=== PATIENT | female | born 1990 | race Hispanic/Latino ===

== ENCOUNTER 2022-12-07 08:39 | Emergency (ER) | payer MEDICAID, OTHER ==
[2022-12-07] MEDS ORDERED: Acetaminophen 500 MG TAB ONE (09:33)
[2022-12-07 10:24] LABS: SARS-CoV-2 NAA Rapid Test Not Detected (NotDetected)
== END 2022-12-07 11:10 | disposition home or self-care (01) ==
LOC: CSHERS 08:39
DX: O99.513 Diseases of the respiratory system complicating pregnancy, third trimester (principal); J10.1 Influenza due to other identified influenza virus with other respiratory manifestations; O99.333 Smoking (tobacco) complicating pregnancy, third trimester; F17.210 Nicotine dependence, cigarettes, uncomplicated; Z20.822 Contact with and (suspected) exposure to COVID-19; Z3A.00 Weeks of gestation of pregnancy not specified
CPT/HCPCS: 99284

== ENCOUNTER 2022-12-11 17:50 | Inpatient (IN) | payer MEDICAID, OTHER ==
[~2022-12-11 17:50] MED LIST: Bupivacaine 0.25% HCL 30 ML VIAL ONE
[2022-12-11] MEDS ORDERED: Promethazine HCl 25 MG/ML VIAL IM PRN (18:46)
[2022-12-11] MEDS ORDERED: Methylergonovine 0.2 MG/ML VIAL IM PRN (18:46)
[2022-12-11] MEDS ORDERED: Lidocaine 1% (PF) 30 ML VIAL SC PRN (18:46)
[2022-12-11] MEDS ORDERED: hydrALAZINE 20 MG/ML VIAL SLOW IVP PRN (18:46)
[2022-12-11] MEDS ORDERED: Carboprost 250 MCG/ML AMP IM PRN (18:46)
[2022-12-11] MEDS ORDERED: Misoprostol 200 MCG TAB PR PRN (18:46)
[2022-12-11] MEDS ORDERED: Ondansetron PF 4 MG/2 ML Vial IVP PRN (18:46)
[2022-12-11] MEDS ORDERED: Acetaminophen 500 MG TAB PO PRN (18:46)
[2022-12-11] MEDS ORDERED: Ibuprofen 800 MG TAB PO PRN (18:46)
[2022-12-11 19:24] LABS: Hemoglobin 12.9 g/dL (12.0-15.5); Mean Corpuscular HGB CONC 33.9 g/dL (32.0-36.0); Mean Corpuscular Hemoglobin 28.4 pg (27.0-33.0); Mean Corpuscular Volume 83.5 fl (81.6-98.3); Mean Platelet Volume 10.4 fl (7.4-10.4); Platelet Count 288 10x3/uL (150-450); Red Blood Cell (RBC) Count 4.55 10x6/uL (3.90-5.03); White Blood Cell (WBC) Count 7.9 10x3/uL (3.5-10.5)
[2022-12-11 19:52] LABS: HBSAg Index 0.46 S/CO (0-0.99); Hep B Surf Ag - L&D Non-Reactive S/CO (NonReactive); Syphilis Antibody Nonreactive (Nonreactive); Syphilis Antibody Index 0.03 S/CO (<1.00 Non-Reactive)
[2022-12-11 20:54] VITALS: BMI 31.0
[2022-12-11] MEDS ORDERED: Misoprostol 100 MCG TAB VAG SCH (21:00)
[2022-12-11] MEDS ORDERED: Lactated Ringer's 1,000 ML IV SCH (21:00)
[2022-12-11] MEDS ORDERED: NS w/ Oxytocin 30 units 500 ML IV SCH ×2 (21:00)
[2022-12-12] MEDS ORDERED: fentaNYL/Ropivacaine Epidural 100 ML ONE (00:53)
[2022-12-12] MEDS ORDERED: Naloxone HCl 0.4 mg/ml Vial IVP PRN ×2 (01:29)
[2022-12-12] MEDS ORDERED: Moisturizing Cream (Eucerin) 113 GM JAR TOP PRN (01:29)
[2022-12-12] MEDS ORDERED: diphenhydrAMINE 50 MG/ML VIAL IVP PRN (01:29)
[2022-12-12] MEDS ORDERED: Lactated Ringer's 500 ML IV PRN (01:29)
[2022-12-12] MEDS ORDERED: Acetaminophen 325 MG TAB PO PRN (01:29)
[2022-12-12] MEDS ORDERED: Ondansetron PF 4 MG/2 ML Vial IVP PRN (01:29)
[2022-12-12] MEDS ORDERED: Promethazine HCl 25 MG/ML VIAL IM PRN (01:29)
[2022-12-12] MEDS ORDERED: ePHEDrine Sulfate 50 MG/10 ML VIAL SLOW IVP PRN (01:29)
[2022-12-12] MEDS ORDERED: Communication Order-Pharmacy FS SCH (01:30)
[2022-12-12] MEDS ORDERED: fentaNYL 2 mcg/Ropivacaine 0.2% Epidural 100 ML CADD EPIDURAL SCH (01:30)
[2022-12-12] MEDS ORDERED: Lidocaine 1% (PF) 30 ML VIAL ONE (02:52)
[2022-12-12] MEDS ORDERED: Lanolin Ointment 7 GM TUBE TOP PRN (03:32)
[2022-12-12] MEDS ORDERED: hydrALAZINE 20 MG/ML VIAL SLOW IVP PRN (03:32)
[2022-12-12] MEDS ORDERED: Bisacodyl 10 MG SUPP PR PRN (03:32)
[2022-12-12] MEDS ORDERED: Milk Of Magnesia 30 ML UDCUP PO PRN (03:32)
[2022-12-12] MEDS ORDERED: Boostrix 0.5 ML (Tdap) VIAL (>/=7 yrs of age) IM ONE (03:32)
[2022-12-12] MEDS: Ferrous Sulfate 325 MG TAB PO SCH ×2 (07:19→15:49)
[2022-12-12] MEDS: Docusate 100 MG CAP PO SCH ×2 (08:25→20:34)
[2022-12-12] MEDS: Ibuprofen 600 MG TAB PO PRN (17:40)
[2022-12-13] MEDS: Ibuprofen 600 MG TAB PO PRN (03:59)
[2022-12-13] MEDS: Ferrous Sulfate 325 MG TAB PO SCH (07:17)
[2022-12-13 07:50] VITALS: BP 105/63; TEMP 98.3
[2022-12-13] MEDS: Docusate 100 MG CAP PO SCH (08:21)
== END 2022-12-13 17:35 | disposition home or self-care (01) | DRG 807 ==
LOC: CSHLD 17:50 → CSHPP 12-12 05:55
PROVIDERS: ADMIT Emergency Medicine; ATTEND Obstetrics & Gynecology
PROC: 10E0XZZ Delivery of Products of Conception, External Approach (ICD-10-PCS; principal; 2022-12-12)
PROC: 0HQ9XZZ Repair Perineum Skin, External Approach (ICD-10-PCS; 2022-12-12)
DX: O48.0 Post-term pregnancy (principal); Z37.0 Single live birth; Z3A.41 41 weeks gestation of pregnancy; O99.02 Anemia complicating childbirth; D64.9 Anemia, unspecified; O99.344 Other mental disorders complicating childbirth; F32.9 Major depressive disorder, single episode, unspecified; O76 Abnormality in fetal heart rate and rhythm complicating labor and delivery; O70.0 First degree perineal laceration during delivery; F41.1 Generalized anxiety disorder; O43.123 Velamentous insertion of umbilical cord, third trimester
CPT/HCPCS: 51702; 85027; 86780; 86850; 86900; 86901; 87340